=== PATIENT | male | born 1965 | race Caucasian/White ===

== ENCOUNTER 2017-08-28 13:32 | Inpatient (IN) ==
[2017-08-28] MEDS ORDERED: NS 1,000 ML IV ONE (13:38)
[2017-08-28] MEDS ORDERED: PROCHLORPERAZINE 10 MG/2 ML INJECTION IVP ONE (13:38)
[2017-08-28] MEDS ORDERED: MORPHINE SULFATE 4mg INJECTION IVP ONE (13:38)
--- NOTE | 2017-08-28 13:39 | Emergency Department Report ---
Fever HPI - General Chief Complaint: Fever Stated Complaint: fever Time Seen by Provider: 08/28/17 13:36 Source: patient, family Mode of arrival: ambulatory Limitations: no limitations - History of Present Illness HPI Narrative: Patient is a 51-year-old male presents emergency room for evaluation of fever confusion and altered mental status. Patient went to work at approximately 9: 00 this morning in usual state of good health, began to feel poorly with a mild headache. Patient went home from work over the course the next few hours patient had a diarrhea stool, then developed severe headache and photophobia as well as nausea no emesis noted. Patient becoming completely altered so brought patient to the ER on arrival patient is confused, not answering questions appropriately. MD complaint: fever, malaise, weakness, other (altered mental status) - Related Data Home Medications Medication Instructions Recorded Confirmed No known Home medications [No home 08/28/17 08/28/17 meds] Allergies Allergy/AdvReac Type Severity Reaction Status Date / Time amoxicillin [From Augmentin] Allergy Severe Anaphylactic Verified 08/28/17 13:50 Shock clavulanic acid Allergy Severe Anaphylactic Verified 08/28/17 13:50 [From Augmentin] Shock doxycycline Allergy Unknown Verified 08/28/17 17:05 Penicillins Allergy Verified 08/28/17 13:39 Review of Systems Constitutional: Reports: fever, chills, weakness Eyes: Reports: other (photophobia). Denies: eye pain, eye discharge, vision change ENT: Denies: ear pain, throat pain, dental pain Cardiovascular: Denies: chest pain, palpitations, dyspnea on exertion Respiratory: Denies: cough, dyspnea, wheezes Gastrointestinal: Reports: nausea, diarrhea. Denies: abdominal pain, vomiting Genitourinary: Denies: dysuria, frequency Musculoskeletal: Denies: back pain Neurological: Reports: headache. Denies: weakness, numbness Psychiatric: Denies: anxiety, depression Endocrine: Denies: fatigue Hematological/Lymphatic: Denies: easy bleeding Allergic/Immunologic: Denies: facial swelling PFSH - Social History Smoking status: Never smoker Substance use type: does not use Alcohol intake frequency: does not drink Physical Exam - General General appearance: alert, other (confused) - Eye Eye exam: Present: PERRL, EOMI - ENT ENT exam: Present: normal oropharynx, mucous membranes moist, TM's normal bilaterally - Neck Neck exam: Present: full ROM, trachea midline, tenderness. Absent: meningismus - Chest Chest inspection: Present: normal inspection, symmetric chest wall rise. Absent : tenderness, rash - Respiratory Respiratory exam: Present: normal lung sounds bilaterally. Absent: respiratory distress, wheezes, stridor - Cardiovascular Cardiovascular exam: Present: regular rate, normal rhythm, normal heart sounds - Abdominal Exam Abdominal exam: Present: soft, normal bowel sounds. Absent: distention, tenderness - Extremities Exam Extremities exam: Present: full ROM - Back Exam Back exam: Present: full ROM. Absent: tenderness, CVA tenderness (R), CVA tenderness (L), muscle spasm - Skin Skin exam: Present: warm, dry - Expanded Neurological Exam Patient oriented to: Present: person, place, time Speech: Present: fluid speech Cranial nerves: Normal: EOM function (II, III, IV, ), facial sensation (V), facial palsy (VII), gag reflex (IX), spinal accessory function (XI), tongue deviation (XII) Motor strength - LUE: 5/5 Motor strength - RUE: 5/5 Motor strength - LLE: 5/5 Motor strength - RLE: 5/5 DTR: 2+: biceps (L), biceps (R), patellar (L), patellar (R) Coma scale eye opening: spontaneous Coma scale motor response: obeys commands Coma scale verbal response: oriented Coma scale total: 15 - Psychiatric Psychiatric exam: Present: normal affect, normal mood Fever - MDM Narrative Medical decision making narrative: Patient has no significant pitting however severe headache and photophobia. Patient's had a lumbar puncture, results are currently pending. Patient given meropenem and vancomycin to cover for meningitis. Discussed case with Dr. Mackey, will admit patient inpatient CCU - Differential Diagnosis Likely: cellulitis, fever of unknown origin, gastroenteritis, community acquired pneumonia, pyelonephritis, viral infection, sepsis, influenza - Medical Records Attestation: I reviewed the patient's medical records. - Lab Data Attestation: I reviewed the patient's lab results. Result diagrams: 08/28/17 13:45 08/28/17 13:45 - Radiology Data Attestation: I reviewed the patient's radiology results. CT scan: No acute intracranial abnormality Disposition Clinical Impression: Meningitis Disposition: To [facility] Acute Care Condition: Stable Time of Disposition: 15:59 - Seen By: physician
[2017-08-28] MEDS ORDERED: ONDANSETRON ODT 4 MG TABLET PO ONE (13:40)
[2017-08-28] MEDS ORDERED: CEFTRIAXONE 2 GM in NS 100 ML IV ONE (13:48)
[2017-08-28] MEDS ORDERED: MEROPENEM 1 GM in NS 100 ML IV ONE (13:54)
[2017-08-28] MEDS: SALINE FLUSH 10ml SYRINGE IVF PRN ×2 (14:08→19:35)
[2017-08-28] MEDS ORDERED: NS FLUSH BAG 500ml IV PRN (14:11)
--- NOTE | 2017-08-28 14:43 | CT Scan Report ---
EXAM: CT head/brain wo con DATE: 08/28/2017 1:37 PM ENCOUNTER: Initial INDICATION: altered mental status question meningitis COMPARISON: None available. TECHNIQUE: 5 mm axial tomographic images were obtained of the head without contrast. The current CT scan was performed using radiation dose-reduction techniques. FINDINGS: The arreola-white matter junction is normal. No intra or extra-axial mass or hemorrhage is identified. There is no midline shift. Ventricles are normal in size, shape, and morphology. The basilar cisterns are patent. No acute osseous or soft tissue abnormality. The visualized paranasal sinuses are normal. The visualized portions of the orbits and globes are normal. The mastoid air cells are clear. IMPRESSION: No acute intracranial process identified by CT. .
--- NOTE | 2017-08-28 14:54 | XRay Report ---
Indication: altered mental status fever sepsis Procedure: XR chest 1V: Encounter: Initial Comparison: None Technique: A single portable AP chest radiograph was obtained. Findings: Lungs and airways: Low lung volumes. No focal airspace consolidation. Normal pulmonary vasculature. Pleura: No pleural effusion or pneumothorax. Heart and mediastinum: The cardiomediastinal silhouette and great vessels are within normal limits. Osseous structures and soft tissues: No acute osseous abnormality is seen. Impression: No acute cardiopulmonary process. .
[2017-08-28] MEDS ORDERED: LIDOCAINE 1% (10mg/ml) 2mL INJ PF SDV ONE (15:01)
--- NOTE | 2017-08-28 16:04 | Fluoroscopy Report ---
INDICATION: fever headaches rule out meningitis Ordering physician:Lukas Lynne MD Procedure:FL lumbar puncture LUMBAR PUNCTURE: The procedure, including the benefits, risks, and alternatives were explained in detail to the patient. All of his questions were answered. They were given the option to decline the procedure. They stated that they understood and wished to proceed. Informed consent was obtained. A pre-procedural timeout was done to verify the correct patient and proper procedure. Using sterile technique, local Xylocaine anesthesia, and fluoroscopic guidance throughout, a 20 G spinal needle was advanced from a posterior approach into the subarachnoid space at the L2-3 level. A fluoroscopic image was then obtained and archived. Removal of the stylet showed clear colorless CSF. Opening pressure was 29 centimeters of water in the prone position. Then 12 cc of CSF was taken off and sent to the lab for the requested studies. The needle was removed. The procedure was completed without complication. Following this, the patient was transferred to his room in the emergency department and given discharge instructions. He was in stable condition Impression: 1. Successful lumbar puncture performed with 12 cc of fluid removed and sent to lab. 2. Opening pressure of 29 cm of water in the prone position. Fluoroscopy dose: 3.47 mGy (Cumulative air kerma) He Hernandez RPA/SAM performed this under my personal supervision. .
[2017-08-28] MEDS ORDERED: ACETAMINOPHEN 500 MG TABLET PO ONE (16:13)
[2017-08-28 16:40] VITALS: BMI 25.7
[2017-08-28] MEDS ORDERED: DOXYCYCLINE 100 MG in NS 250ml 250 ML IV SCH (16:42)
--- NOTE | 2017-08-28 16:43 | History & Physical Report ---
History of Present Illness Date: 08/28/17 Chief complaint: fever, headache HPI: Toño Kemp is a healthy 51 year old male who suddenly fell ill while at work on 08/28/17. When he awoke this morning, he felt "fine". He has not had any recent illnesses such as cough/URI, sore throat, abdominal pain, nausea/vomiting /diarrhea/constipation, dysuria, rashes, or infected wounds. His noted that he looks "full" under his jaw line. He has not had any unexplained bruising or bleeding. He denies injuries or trauma, paresthesias, dysphagia, or unilateral weakness. He denies acute visual changes i.e. blurred vision or diplopia. He denies vertigo or tinnitus. No chest pain or dyspnea. He is an avid outdoorsman, and has pulled a few ticks off over the last few weeks - the last one being while in [place], but he also travels to [place] frequently. In addition, opsh-amxe-pdh-mouth disease has been spreading in the workplace. Around 1000, he asked his to come pick him up. By then, he had a severe dull global headache and diffuse myalgias - so much that even touching his skin produced pain. He was confused, repeating statements and not tracking right. He had photophobia. He was so weak that he was unable to stand up out of his chair without assistance from colleagues. En route to the ED, he was nauseated but never vomited. His temp on arrival was 101.0 and increased to 102.3 before Tylenol was given. BP was low normal at 97/53; HR peaked at 95 in the ED. He made repetitive comments again in the ED. Meningitis workup ensued - CT head was negative. Lactate was elevated at 2.2. WBC was normal though he had a left shift with 86% neutrophils and 2% bands. Glucose was elevated at 141 - no history of DM. CMP was unremarkable. LP was not suggestive of bacterial source - CSF was clear and colorless with TNC = 2 and normal glucose and normal protein values. He was started on Merrem and Vanco in the ED - he has anaphylaxis to PCN. He received 1L of NS and was also given Morphine. Dr. Mackey was notified, and he was admitted to inpatient status. LOS is expected to exceed 2 overnights. Review of Systems All systems PM: 10-point ROS was reviewed, no additional remarkable complaints except - Constitutional Constitutional: Present: as per HPI - EENMT Eyes: Present: as per HPI Balance: Present: as per HPI Nose: Present: as per HPI Mouth/Throat: Present: as per HPI - Cardiovascular Cardiovascular: Present: as per HPI Vascular: Absent: pedal edema - Respiratory Respiratory: Present: as per HPI - Gastrointestinal Gastrointestinal: Present: as per HPI - Genitourinary Genitourinary: Present: as per HPI - Musculoskeletal Musculoskeletal: Present: as per HPI - Integumentary/Breasts Integumentary: Present: as per HPI - Neurological Neurological: Present: as per HPI - Psychiatric Psychiatric: Present: as per HPI - Endocrine Endocrine: Absent: palpitations - Hematologic/Lymphatic Hematologic/Lymphatic: Present: as per HPI - Allergic/Immunologic Allergic/Immunologic: Absent: urticaria Past Medical History Medical History Updates: Elevated PSA Family History Updates: Father recently diagnosed with prostate cancer. He is 68 years old. Mother has HTN, she's also 68 years old. Family History: As Above - Social History Smoking status: Former smoker (remote history) Substance use type: does not use Alcohol intake frequency: holidays/special occasions only Household members: spouse (Sari) Current occupational status: employed Current occupation: Chief, [employer] Social history: PCP - Dr. Garcia Medications Home Medications Medication Instructions Recorded Confirmed Type No known Home medications [No home 08/28/17 08/28/17 History meds] Allergies Allergy/AdvReac Type Severity Reaction Status Date / Time amoxicillin [From Augmentin] Allergy Severe Anaphylactic Verified 08/28/17 13:50 Shock clavulanic acid Allergy Severe Anaphylactic Verified 08/28/17 13:50 [From Augmentin] Shock doxycycline Allergy Unknown Verified 08/28/17 17:05 Penicillins Allergy Verified 08/28/17 13:39 Exam Vital Signs: Temperature 101.8 F H 08/28/17 16:34 Pulse Rate 95 08/28/17 16:15 Respiratory Rate 17 08/28/17 16:15 Blood Pressure 110/47 08/28/17 16:33 Pulse Oximetry 93 08/28/17 16:34 - Constitutional Present: well nourished, well developed - Routine HEENT Exam Head: Present: normocephalic Eye: Present: EOMI, PERRL. Absent: conjunctival icterus, scleral injection ENT: Present: mucous membranes dry, oropharynx clear, dentition normal - Routine Neck Exam Present: full ROM, lymphadenopathy (cervical ), tenderness (denied tenderness but he grimaced slightly when posterior neck i.e. paraspinal muscles were palpated) - Routine Respiratory Exam Present: CTA bilaterally - Routine Cardiovascular Exam Present: RRR, S1, S2 - Routine Abdominal Exam Present: soft, normoactive bowel sounds, non distended, non tender. Absent: distended, organomegaly - Routine Extremities Exam Present: no edema, pulses intact (bounding distal pulses). Absent: calf tenderness - Routine Skin Exam Present: dry, pallor, warm - Routine Neurological Exam Present: alert, oriented X3, CN II-XII intact, moving all extremities, normal tone, vision grossly intact, hearing grossly intact, normal speech. Absent: motor deficit, normal reflexes (1+ B/L patellar), altered mental status ( resolved at time of exam), nystagmus, facial asymmetry, tremors brco-nw-qhsy intact onpkux-ll-cazm slightly delayed on right compared to left Negative Kernig and Brudzinski's signs - Routine Psychiatric Exam Present: normal affect, normal thought process, cooperative Results - Labs CBC & Chem 7: 08/28/17 13:45 08/28/17 13:45 - Imaging and Cardiology CT scan - head Status: image reviewed by me Additional comments: negative Chest x-ray Status: image reviewed by me Additional comments: no pneumonia seen Assessment and Plan (1) Meningitis Current visit: Yes Status: Acute Assessment and Plan: ASSESSMENT Suspect viral meningitis R/O severe sepsis (fever, lactate 2.2, HR >90) Encephalopathy PLAN Admit, inpatient status. Dr. Mackey attending. Abx: Merrem, vanco (anaphylaxis to PCN and doxycycline). Would prefer to use doxy to cover for potential tick borne illness but severe allergy precludes that as an option. Follow CSF, culture results. Add tick serologies; check EBV & CRP for baseline. IVF: 1L infused in ED. BP improving though low-normals noted. Continue NS at 100 mL/hr. Repeat lactate to ensure downward trend. Tylenol/ibuprofen for fever. Morphine for severe pain. Antiemetics PRN. PCP - Dr. Garcia. Discussed with Dr. Mackey and Dr. Lynne. DVT Prophylaxis: SCD's Resuscitation Status: Full Code - Physician Narrative Physician: Lala Mackey MD Narrative: Date: 08/28/17 Time: 2029 I have independently evaluated and examined this patient. I reviewed the chart, the patient's history, and the AUTOMOBILE BODY CUSTOMIZER/PA's documented findings as above. We discussed and formulated the assessment and plan as above with additions as below: Chief Viridiana had acute onset generalized myalgias, headache, fever, and mild confusion shortly after arriving at work this morning. He had diarrhea at least once and now complains of some mild generalized abdominal discomfort without nausea or vomiting. Maximum temperature thus far has been 102.3. He's traveled to [place] with last trip about a month ago, had tick and mosquito exposure but is not aware of any ticks which were retained for more than 12 hours. He denies recent vaccinations. Work-related exposures are as noted in addition to extensive exposure to the public. No recent antibiotics. Confusion was reported in the emergency room although both the patient and his minimize that at present. Uncomfortable appearing male when seen this afternoon but appropriately responsive Neck supple, rotates easily and can flex chin almost fully to chest without resistance Minimal photophobia, shotty adenopathy present cervical chains Respirations nonlabored, good airflow, breath sounds clear Regular rhythm, S1-S2, soft systolic murmur left upper sternal border Abdomen soft but mild generalized tenderness with some guarding in the right upper quadrant Skin without rash/wounds; no petechiae noted, no splinter hemorrhages appreciated Lactic acid 2.2-1.8 CSF unremarkable (2 WBCs, 50% neutrophils, 50% lymphocytes), CSF serologies negative. UA unremarkable, chest x-ray unremarkable by my review. CT abdomen/pelvis also reviewed by myself and without any acute pathology although mild ileus present. Head CT also reviewed by myself-negative. Febrile illness/severe sepsis Nonspecific presentation, CSF studies unremarkable. Cultures pending. Continue broad-spectrum antibiotics. Tickborne serologies pending-empiric doxycycline cannot be started due to questionable history anaphylaxis to Doxy. Hemodynamically stable Sepsis Assessment - Evaluation SIRS Criteria: temperature > 100.9, pulse > 90 beats/minute Severe Sepsis: lactate > 2.0 mg/dL Hospital Course Summary Disclaimer: The visit summary below is not to be considered part of the above Progress Note. Hospital Course: 08/28/17 Admit, inpatient status. Dr. Mackey attending. Abx: austen Fuller (anaphylaxis to PCN and doxycycline). Would prefer to use doxy to cover for potential tick borne illness but severe allergy precludes that as an option. Follow CSF, culture results. Add tick serologies; check EBV & CRP for baseline. IVF: 1L infused in ED. BP improving though low-normals noted. Continue NS at 100 mL/hr. Repeat lactate to ensure downward trend. Tylenol/ibuprofen for fever. Morphine for severe pain. Antiemetics PRN.
[2017-08-28] MEDS ORDERED: MORPHINE SULFATE 4mg INJECTION IVP PRN (17:13)
[2017-08-28] MEDS ORDERED: METOCLOPRAMIDE 10mg/2ml INJECTION IVP PRN (17:13)
[2017-08-28] MEDS ORDERED: ONDANSETRON 4 MG/2 ML INJECTION IVP PRN (17:13)
[2017-08-28] MEDS ORDERED: SENNA + DOCUSATE TABLET PO PRN (17:13)
[2017-08-28] MEDS ORDERED: VANCOMYCIN - PHARMACY CONSULT MC ONE (17:24)
[2017-08-28] MEDS: NS 1,000 ML IV SCH (17:58)
[2017-08-28] MEDS ORDERED: IOHEXOL 300mg/ml 100ml INJECTION ONE (18:05)
[2017-08-28] MEDS ORDERED: SALINE FLUSH 10ml SYRINGE ONE (18:05)
--- NOTE | 2017-08-28 18:49 | Pharmacy Consult-Antibiotics ---
Pharmacy Consult-Vancomycin - Laboratory Information WBC 9.2 T/MM3 (4.5-11.0) 08/28/17 13:45 BUN 20.0 MG/DL (9-20) 08/28/17 13:45 Creatinine 1.1 mg/dL (0.8-1.5) 08/28/17 13:45 - Consult Information 51 y.o. M admitted through ER with sudden onset of fever and weakness. Vancomycin consult ordered empirically. Goal Vanco trough range= 15 to 20 mcg/ ml. Vancomycin 1 gm IV x 1 dose given in ER. Ordered another Vancomycin 1 gm IV dose for a total of 2 gm. Then, Vancomycin 2 gm iv Q12H. Pharmacy will monitor and adjust. Thank you, Rebecca Monson [facility]
[2017-08-28] MEDS: MEROPENEM 1 GM in NS 100 ML IV SCH (21:16)
[2017-08-29] MEDS: ACETAMINOPHEN 325 MG TABLET PO PRN ×3 (00:31→15:40)
[2017-08-29] MEDS: MEROPENEM 1 GM in NS 100 ML IV SCH ×3 (05:51→23:16)
[2017-08-29] MEDS: IBUPROFEN 600 MG TABLET PO PRN ×2 (07:55→20:24)
--- NOTE | 2017-08-29 08:32 | CT Scan Report ---
Indication: fever, diarrhea PROCEDURE: CT abdomen pelvis w con: Encounter: Initial Comparison: None Technique: Axial CT images were performed through the abdomen and pelvis after the administration of intravenous contrast. Coronal and sagittal two-dimensional reformats. Automated Exposure Control and Iterative Reconstruction dose reducing techniques were utilized. Contrast: Omnipaque 300 100 mL Findings: Mild bibasilar atelectasis. The liver is normal. The gallbladder, spleen, pancreas and adrenal glands are within normal limits. Kidneys are normal. No abdominal or pelvic lymphadenopathy. Bladder is normal. No free fluid. No evidence of a bowel obstruction or diverticulitis. Small amount of fluid in the right colon. The appendix is gas-filled and normal. Bone windows show no acute findings. Impression: Possible gastroenteritis, otherwise no acute disease process seen in the abdomen or pelvis. Mild basilar atelectasis. There is a preliminary report by virtual radiologic. I do not appreciate the possible bowel obstruction suggested on the preliminary report. .
[2017-08-29] MEDS: NS 1,000 ML IV SCH ×2 (09:17→13:29)
--- NOTE | 2017-08-29 12:12 | Progress Note ---
- Date 08/29/17 Subjective: Chief Viridiana reports he's feeling better this morning. Temperature spiked again overnight with temperature of 102.2 at midnight and subsequent defervescence. Myalgias, headache, neck stiffness, and photophobia have all resolved and he is unaware of any rash. There's been no further diarrhea. He denies nausea or vomiting. He's tolerating food and reports he's sleeping well. His is concerned that he's sleeping excessively. He denies lightheadedness but has not been out of bed. He denied dyspnea or cough and has had no dysuria or hematuria. Objective Vital signs: Temperature 100.1 F 08/29/17 07:00 Pulse Rate 87 08/29/17 08:18 Respiratory Rate 22 08/29/17 07:00 Blood Pressure 138/63 08/29/17 07:00 Pulse Oximetry 94 08/29/17 07:00 I/O 3273/525 NAD, alert, fluent speech Conjugate gaze, EOMI, conjunctiva clear, sclera anicteric, oropharynx clear, neck supple, no adenopathy appreciated Skin with mild generalized erythema-blanches with pressure; no urticaria or macules/petechiae Respirations nonlabored, good airflow, breath sounds clear anteriorly/ posteriorly Regular rhythm, S1-S2, murmur noted yesterday no longer present Abdomen soft, nontender, without guarding or distention, bowel sounds present Extremities without edema; calves nontender Moving all extremities well Height/Weight/BMI: Height 1.85 m Weight 88.5 kg Body Mass Index 25.7 Results - Labs CBC & Chem 7: 08/29/17 04:23 08/29/17 04:23 Labs: Ca 7.9 Microbiology Results: Blood cultures negative overnight; CSF culture negative. CSF Gram stain without organisms described. - Imaging and Cardiology CT scan - abdomen Status: image reviewed by me (CT unremarkable other than mild fluid in the right colon on formal report; films reviewed by myself.) Assessment and Plan (1) Severe sepsis Current visit: Yes Status: Acute (2) Meningitis Current visit: Yes Status: Ruled-out Assessment and Plan: ASSESSMENT: Suspect viral meningitis Severe sepsis (fever, lactate 2.2, HR >90) Encephalopathy Headaches/arthralgias Decreasing platelet count Normocytic anemia, minor-possibly dilution PLAN: Clean improved, continue med and vancomycin ending cultures. Multiple serologies pending-early ketosis of concern; West Nile serologies will be obtained-? West Nile fever. Platelet count dropping-monitor closely. PTT to be obtained in a.m. Liver enzymes will be rechecked in the morning. Literary search initiated for doxycycline desensitization protocols. Discussed with infectious disease for additional recommendations. DVT Prophylaxis: SCD's Resuscitation Status: Full Code - Physician Narrative Narrative: Date: 08/29/17 Time: 1202 Hospital Course Summary Disclaimer: The visit summary below is not to be considered part of the above Progress Note. Hospital Course: 08/28/17 Admit, inpatient status. Dr. Mackey attending. Abx: Merrem, vanco (anaphylaxis to PCN and doxycycline). Would prefer to use doxy to cover for potential tick borne illness but severe allergy precludes that as an option. Follow CSF, culture results. Add tick serologies; check EBV & CRP for baseline. IVF: 1L infused in ED. BP improving though low-normals noted. Continue NS at 100 mL/hr. Repeat lactate to ensure downward trend. Tylenol/ibuprofen for fever. Morphine for severe pain. Antiemetics PRN. 08/29/17 Clean improved, continue med and vancomycin ending cultures. Multiple serologies pending, West Nile serologies will be obtained. Platelet count dropping-monitor closely. PTT to be obtained in a.m. Liver enzymes will be rechecked in the morning. Literary search initiated for doxycycline desensitization protocols. Discussed with infectious disease for additional recommendations.
[2017-08-30] MEDS: NS 1,000 ML IV SCH ×3 (00:14→19:04)
[2017-08-30] MEDS: MEROPENEM 1 GM in NS 100 ML IV SCH ×2 (05:18→21:06)
[2017-08-30] MEDS: ACETAMINOPHEN 325 MG TABLET PO PRN (10:18)
--- NOTE | 2017-08-30 11:07 | Progress Note ---
- Date 08/30/17 Subjective: Overall, Toño is feeling better. However, he has a nagging frontal headache that he cannot get rid of. It is better when he is supine but not completely gone. It worsens when he sits upright. He is concerned that he might have spinal headache, which is a reasonable differential diagnosis. He is not quite sure if this is same headache he had when he was admitted. He denies any visual changes, nausea, vomiting or nausea. He denies feeling dizzy or lightheaded when he ambulates. He has noticed redness to his arms and chest that is nonpruritic. He has not seen any petechial rashes. He states that he doesn't have much of an appetite, but he denies any abdominal pain. Objective Vital signs: Temperature 98.3 F 08/30/17 07:00 Pulse Rate 67 08/30/17 07:00 Respiratory Rate 16 08/30/17 07:00 Blood Pressure 138/80 08/30/17 07:00 Pulse Oximetry 96 08/30/17 07:00 Height/Weight/BMI: Height 1.85 m Weight 91.2 kg Body Mass Index 25.7 - Constitutional Present: no acute distress, well nourished, well developed - Routine HEENT Exam Head: Present: normocephalic Eye: Present: PERRL. Absent: conjunctival icterus, scleral injection ENT: Present: mucous membranes moist - Routine Respiratory Exam Present: CTA bilaterally - Routine Cardiovascular Exam Present: RRR, S1, S2 - Routine Abdominal Exam Present: soft, normoactive bowel sounds, non distended, non tender - Routine Extremities Exam Present: no edema, pulses intact - Routine Back/Spine/Pelvis Exam Back/Spine: Absent: vertebral tenderness - Routine Skin Exam Present: intact, dry, warm Comments: Faint erythema noted to arms and chest. No petechiae seen. - Routine Neurological Exam Present: alert, oriented X3, CN II-XII intact, moving all extremities, vision grossly intact, hearing grossly intact, normal speech. Absent: facial asymmetry - Routine Psychiatric Exam Present: normal affect, normal thought process, cooperative Results - Labs CBC & Chem 7: 08/30/17 04:26 08/30/17 04:26 Assessment and Plan (1) Meningitis Current visit: Yes Status: Ruled-out (2) Severe sepsis Current visit: Yes Status: Acute Assessment and Plan: ASSESSMENT: Suspect viral meningitis versus tickborne illness Severe sepsis (fever, lactate 2.2, HR >90) Encephalopathy - resolved Headaches/arthralgias Possible spinal headache Decreasing platelet count Normocytic anemia, minor-possibly dilution PLAN: Thrombocytopenia continues to worsen with platelets down to 100,000 today. The plan is to place him back into the CCU for doxycycline desensitization protocol. LFTs are unremarkable. Consider blood patch for symptoms consistent with spinal headache. Patient reports pain is more distal and tolerable, however. Fever is subsiding, MAXIMUM TEMPERATURE over the last 24 hours was 100.5 yesterday evening. White count remains normal. Continue antibiotics at this time. Serologies reviewed, thus far negative. Discussed with patient's spouse and with Dr. Mackey. DVT Prophylaxis: SCD's Resuscitation Status: Full Code - Physician Narrative Physician: Lala Mackey MD Narrative: Date: 08/30/17 Time: 1440 I have independently evaluated and examined this patient. I reviewed the chart, the patient's history, and the SUPERVISOR RESEARCH KENNEL/PA's documented findings as above. We discussed and formulated the assessment and plan as above with additions as below: Chief Viridiana reports feeling improved today with resolution of arthralgias and fever. He had mild headache when seen this morning which later worsened when he ambulated. Maximum temperature yesterday evening was 100.5 but he was otherwise afebrile overnight. His noted mild erythema on his upper arms but he denied palpable rash or itching. Respirations nonlabored, good airflow, breath sounds clear Completely normal range of motion at the neck Faint erythema upper arms, blanches with pressure but generalized erythema present yesterday morning has resolved When reevaluated early afternoon after transfer to ICU the upper arm erythema was nearly gone. Platelet count 178-128-100 since admission. Blood cultures 2 negative after 48 hours, CSF negative thus far-just short of 48 hours. Multiple serologies pending. Discussed with infectious diseases again today-ehrlichiosis remains primary concern; doxycycline preferred treatment however rifampin can be used if unable to desensitize or does not tolerate desensitization protocol. Reported history of doxycycline allergy is very vague and not remembered-only known because on file at pharmacy and unsure or they obtain the information. Plan desensitization to doxycycline due to concern of ehrlichiosis following tick exposure. Transferred to ICU; desensitization protocol discussed with nursing staff and pharmacy. Doxycycline dilutions prepared. Epinephrine and Benadryl at bedside. First 2 doses given thus far without difficulty. Will discontinue IV antibiotics if CSF negative at 48 hours. Spinal headache-supplemental IV fluids for volume expansion, encouraged increased caffeine consumption. Blood patch if symptoms worsen. In and out of patient's room repetitively through the day, remained in ICU intermediate vicinity of patient's room during desensitization protocol over 2+ hour time period. >35 minutes in direct patient care. Hospital Course Summary Disclaimer: The visit summary below is not to be considered part of the above Progress Note. Hospital Course: 08/28/17 Admit, inpatient status. Dr. Mackey attending. Abx: Merrem, vanco (anaphylaxis to PCN and doxycycline). Would prefer to use doxy to cover for potential tick borne illness but severe allergy precludes that as an option. Follow CSF, culture results. Add tick serologies; check EBV & CRP for baseline. IVF: 1L infused in ED. BP improving though low-normals noted. Continue NS at 100 mL/hr. Repeat lactate to ensure downward trend. Tylenol/ibuprofen for fever. Morphine for severe pain. Antiemetics PRN. 08/29/17 Clean improved, continue med and vancomycin ending cultures. Multiple serologies pending, West Nile serologies will be obtained. Platelet count dropping-monitor closely. PTT to be obtained in a.m. Liver enzymes will be rechecked in the morning. Literary search initiated for doxycycline desensitization protocols. Discussed with infectious disease for additional recommendations. 08/30/17 Thrombocytopenia continues to worsen with platelets down to 100,000 today. The plan is to place him back into the CCU for doxycycline desensitization protocol. LFTs are unremarkable. Consider blood patch for symptoms consistent with spinal headache. Patient reports pain is more distal and tolerable, however. Fever is subsiding, MAXIMUM TEMPERATURE over the last 24 hours was 100.5 yesterday evening. White count remains normal. Continue antibiotics at this time. Serologies reviewed, thus far negative. Discontinue antibiotics if CSF culture negative at 48 hours.
[2017-08-30] MEDS ORDERED: EPINEPHrine 1mg/ml (1:1000) vial IM PRN (13:10)
[2017-08-30] MEDS ORDERED: DiphenhydrAMINE 50 MG/ML INJECTION IVP PRN (13:11)
[2017-08-30] MEDS ORDERED: NS IV SCH ×4 (14:00→15:00)
[2017-08-30] MEDS ORDERED: DOXYCYCLINE IV SCH ×4 (14:00→15:00)
[2017-08-30] MEDS ORDERED: NS 1,000 ML IV SCH (14:45)
[2017-08-30] MEDS: IBUPROFEN 600 MG TABLET PO PRN (16:50)
[2017-08-31] MEDS: NS 1,000 ML IV SCH ×2 (03:14→05:03)
[2017-08-31] MEDS: IBUPROFEN 600 MG TABLET PO PRN (08:18)
[2017-08-31 09:49] VITALS: TEMP 98.3
[2017-08-31 12:52] VITALS: PULSE 39
[2017-08-31 13:08] VITALS: BP 135/74; RESP 23; O2SAT 96
--- NOTE | 2017-08-31 15:37 | Discharge Summary ---
Discharge Information Date of admission: 08/28/17 16:01 Anticipated date of discharge: 08/31/17 Attending Physician: Lala Mackey MD Primary care physician: Antwan Garcia MD - Discharge Diagnosis (1) Severe sepsis Status: Resolved Tickborne illness/ehrlichiosis probable Severe sepsis (fever, lactate 2.2, HR >90) - resolved Encephalopathy - resolved Headaches/arthralgias Possible spinal headache Thrombocytopenia - improving Normocytic anemia, minor-possibly dilution - Procedures Procedures: Lumbar puncture on 08/28/17 - Laboratory Labs: 08/31/17 03:59 08/31/17 03:59 Laboratory Tests 08/28/17 08/28/17 08/28/17 15:28 15:28 17:48 CSF Appearance Clear CSF Color Colorless CSF RBC 0 CSF Tot Nucleated Cells 2 CSF Neutrophils % 50 CSF Lymphocytes % 50 CSF Glucose 70 CSF Total Protein 40 A. phagocytophilum Cmmt Pending Cryptococcus Ag Negative CMV DNA Detection Negative E.chaffeensis DNA (PCR) Pending E. ewingii/canis (PCR) Pending E. muris-like DNA (PCR) Pending West Nile Virus IgG Ab West Nile Virus IgM Ab West Nile Interp EBV Capsid Ag IgG Ab Positive A EBV Capsid Ag IgG Index 591.0 H EBV Capsid Ag IgM Ab Negative EBV Capsid Ag IgM Index <10.0 EBV Early Antigen IgG Positive A EBV EA IgG Ab Interp 22.1 H EBV Nuclear Antigen Ab Positive A E. coli (PCR) Negative H. influenzae DNA Negative HSV I DNA PCR Negative HSV II DNA PCR Negative HHV-6 DNA (PCR) Negative Listeria (PCR) Negative N. meningitidis (PCR) Negative Parechovirus (PCR) Negative Entero/Rhino (PCR) Negative Rickettsia Ab (Spotted Pending Group B Strep (PCR) Negative Strep pneumoniae (PCR) Negative Tularemia Antibody Pending VZV DNA (PCR) Negative 08/30/17 04:26 CSF Appearance CSF Color CSF RBC CSF Tot Nucleated Cells CSF Neutrophils % CSF Lymphocytes % CSF Glucose CSF Total Protein A. phagocytophilum Cmmt Cryptococcus Ag CMV DNA Detection E.chaffeensis DNA (PCR) E. ewingii/canis (PCR) E. muris-like DNA (PCR) West Nile Virus IgG Ab Pending West Nile Virus IgM Ab Pending West Nile Interp Pending EBV Capsid Ag IgG Ab EBV Capsid Ag IgG Index EBV Capsid Ag IgM Ab EBV Capsid Ag IgM Index EBV Early Antigen IgG EBV EA IgG Ab Interp EBV Nuclear Antigen Ab E. coli (PCR) H. influenzae DNA HSV I DNA PCR HSV II DNA PCR HHV-6 DNA (PCR) Listeria (PCR) N. meningitidis (PCR) Parechovirus (PCR) Entero/Rhino (PCR) Rickettsia Ab (Spotted Group B Strep (PCR) Strep pneumoniae (PCR) Tularemia Antibody VZV DNA (PCR) Laboratory Tests 08/31/17 10:40 Stl Cyclospora species Negative Stool Rotavirus A PCR Negative Stool Adenovirus (PCR) Negative Stool Astrovirus (PCR) Negative Stool Campylobacter PCR Negative Stl C.difficile Tox PCR Negative Stool Cryptosporidium PCR Negative Stl E.coli Shiga Toxins Negative Stl Enterotoxigenic E PCR Negative Stool EPEC (PCR) Negative Stool EAEC (PCR) Negative Stool Entamoeba (PCR) Negative Stool Giardia Lamblia PCR Negative Stool Salmonella PCR Negative Stool Sapovirus (PCR) Negative Stl P. shigelloides PCR Negative Stl Shigella/EIEC PCR Negative St Y.enterocolitica PCR Negative Stool Vibrio (PCR) Negative Stl Vibrio cholera PCR Negative Stl Norovirus GI/GII PCR Negative Laboratory Tests 08/28/17 08/29/17 08/30/17 13:45 04:23 04:26 Plt Count 178 123 L 100 L 08/31/17 03:59 Plt Count 107 L - Microbiology Blood culture: No growth after 3 days. CSF culture: No growth after 2 days - Radiology Radiology: Head CT on 08/28/17: No acute intracranial process. Chest x-ray on 08/28/17: No acute cardiopulmonary process. Abdominal pelvis CT on 08/28/17: Mild basilar atelectasis. Possible gastroenteritis. History of Present Illness HPI: Toño Kemp is a healthy 51 year old male who suddenly fell ill while at work on 08/28/17. When he awoke this morning, he felt "fine". He has not had any recent illnesses such as cough/URI, sore throat, abdominal pain, nausea/vomiting /diarrhea/constipation, dysuria, rashes, or infected wounds. His noted that he looks "full" under his jaw line. He has not had any unexplained bruising or bleeding. He denies injuries or trauma, paresthesias, dysphagia, or unilateral weakness. He denies acute visual changes i.e. blurred vision or diplopia. He denies vertigo or tinnitus. No chest pain or dyspnea. He is an avid outdoorsman, and has pulled a few ticks off over the last few weeks - the last one being while in [place], but he also travels to [place] frequently. In addition, qlid-bvbv-[id number]-mouth disease has been spreading in the workplace. Around 1000, he asked his to come pick him up. By then, he had a severe dull global headache and diffuse myalgias - so much that even touching his skin produced pain. He was confused, repeating statements and not tracking right. He had photophobia. He was so weak that he was unable to stand up out of his chair without assistance from colleagues. En route to the ED, he was nauseated but never vomited. His temp on arrival was 101.0 and increased to 102.3 before Tylenol was given. BP was low normal at 97/53; HR peaked at 95 in the ED. He made repetitive comments again in the ED. Meningitis workup ensued - CT head was negative. Lactate was elevated at 2.2. WBC was normal though he had a left shift with 86% neutrophils and 2% bands. Glucose was elevated at 141 - no history of DM. CMP was unremarkable. LP was not suggestive of bacterial source - CSF was clear and colorless with TNC = 2 and normal glucose and normal protein values. He was started on Merrem and Vanco in the ED - he has anaphylaxis to PCN. He received 1L of NS and was also given Morphine. Dr. Mackey was notified, and he was admitted to inpatient status. LOS is expected to exceed 2 overnights. Objective Vital signs: Temperature 98.3 F 08/31/17 09:00 Pulse Rate 39 L 08/31/17 12:51 Respiratory Rate 23 08/31/17 12:00 Blood Pressure 135/74 08/31/17 11:00 Pulse Oximetry 96 08/31/17 11:00 Height/Weight/BMI: Height 1.85 m Weight 91.2 kg Body Mass Index 25.7 - Constitutional Present: no acute distress, well nourished, well developed - Routine HEENT Exam Head: Present: normocephalic Eye: Present: PERRL. Absent: conjunctival icterus, scleral injection ENT: Present: mucous membranes moist, oropharynx clear - Routine Respiratory Exam Present: crackles (minimal to b/l bases) - Routine Cardiovascular Exam Present: RRR, S1, S2 - Routine Abdominal Exam Present: soft, normoactive bowel sounds, non distended, non tender - Routine Extremities Exam Present: no edema - Routine Back/Spine/Pelvis Exam Back/Spine: Present: full ROM - Routine Musculoskeletal Exam Musculoskeletal: Present: moving extremities well - Routine Skin Exam Present: intact, dry, warm. Absent: rash - Routine Neurological Exam Present: alert, oriented X3, CN II-XII intact, moving all extremities, vision grossly intact, hearing grossly intact, normal speech. Absent: sensory deficit , motor deficit, altered mental status, facial asymmetry - Routine Psychiatric Exam Present: normal affect, normal thought process, cooperative Hospital Course This is a general summary of the patient's hospital course. For more details refer to the complete medical record. Hospital course: 08/28/17 Admit, inpatient status. Dr. Mackey attending. Abx: Merrem, vanco (anaphylaxis to PCN and doxycycline). Follow CSF, culture results. Add tick serologies; check EBV & CRP for baseline. IVF: 1L infused in ED. BP improving though low-normals noted. Continue NS at 100 mL/hr. Lactate trending down. 08/29/17 Improved, Multiple serologies pending, West Nile serologies will be obtained. Platelet count dropping-monitor closely. PTT to be obtained in a.m. Discussed with infectious disease for additional recommendations. 08/30/17 Thrombocytopenia continues to worsen with platelets down to 100,000 today. Fever is subsiding, MAXIMUM TEMPERATURE over the last 24 hours was 100.5. White count remains normal. Continue antibiotics. Serologies reviewed, thus far negative. LFTs are unremarkable. Doxycycline desensitization protocol completed - pt tolerated well. Mild headache, consistent with spinal headache. 08/31/17 Much improved. Platelets increasing - 107. Afebrile x 2 days. Tolerating doxycycline and vanco/merrem have been dc'd. Headache improved with caffeine intake. Some serologies still pending - may follow outpt. Most probable dx is tickborne illness and will cont doxy in outpt setting to complete 10 day course. F/U with Dr. Garcia in 1 week. Stable for discharge home. Pt voiced understanding. Time spent with patient: discharge greater than 30 minutes Resuscitation Status: Full Code Discharge Plan - Discharge Disposition Discharge Date: 08/31/17 Disposition: 01 Discharged Home, Self-Care *Condition: Stable Reason For Visit (Visit label in EMR): tick borne illness - Discharge Medications *Discharge Medications: New Acetaminophen [Tylenol] 650 - 975 mg PO Q5H PRN tab PRN Reason: Discomfort Doxycycline [Vibramycin] 100 mg PO BIDWM #18 tab Ibuprofen [Motrin] 600 mg PO Q6H PRN tab PRN Reason: Pain - Discharge Packet/Instructions *Diet: regular *Activity: as tolerates *Pain Management/Treatment: tylenol or ibuprofen as needed *Wound Care: not applicable Additional Instructions: monitor for recurrent fever, headache, or joint pain/ swelling *Expected Signs/Symptoms: fatigue, minor nausea with Doxy *Notify Physician if: recurrent fever *During Business Hours Contact: Dr. Garcia's office *After Business Hours Contact: Call [facility] at [phone] and ask that the on-call physician be paged *Pending Lab/Results: Follow up w/Provider - Referrals/Follow Up *Referrals/Follow Up: Antwan Garcia MD [Primary Care Provider] - 1 Week - Patient Handouts Patient Handouts: Tick Bite (GEN) - Dismissal Complete Discharge Instructions are:: Complete Physician Narrative - Narrative Physician: Lala Mackey MD Attestation Narrative: Date: 08/31/17 Time: 1720 I have independently evaluated and examined this patient. I reviewed the chart, the patient's history, and the DIGITAL ANALYST/PA's documented findings as above. We discussed and formulated the assessment and plan as above with additions as below: Chief Viridiana reports feeling significantly improved today. He has minimal headache which improved with caffeine ingestion. He denied nausea or dyspnea. He has had some diarrhea but stool studies were negative for pathogens. He was afebrile overnight and is anxious for discharge home. On exam erythema has fully resolved on the upper extremities. Respirations are nonlabored with good airflow and cardiac rhythm is regular. Platelet count improving; multiple serologies pending although EBV studies noted following discharge. Continue doxycycline, consider repeat testing for ehrlichiosis in 2-3 weeks when IgM response more likely than current pending labs.
== END 2017-08-31 12:55 | disposition home or self-care (01) | DRG 871 ==
LOC: ED 13:32 → EDHOLD 16:01 → CCU 16:30 → MED 08-29 16:09 → CCU 08-30 13:24
PROVIDERS: ADMIT Internal Medicine; ATTEND Internal Medicine